=== PATIENT | male | born 1985 | race Caucasian/White ===

== ENCOUNTER 2018-11-29 08:26 | Emergency (ER) | payer OTHER ==
[~2018-11-29] VITALS: Ht 182.9 cm; Wt 122.5 kg
[~2018-11-29 08:26] MED LIST: BACTRIM DS TAB1 EACH PO; FLEXERIL PO; KEFLEX500 MG PO; NAPROSYN500 MG PO; NOHOMEMEDICATIONS; NORCO 5-325 TA1 EACH PO; POLYMYXIN B/TMP10 ML OP; ULTRAM 50MG TAB50 MG PO; ZOFRAN ODT4 MG PO
[2018-11-29 09:20] LABS: ABSOLUTE BASOPHILS 0.1 thou/uL (0.0-0.2); ABSOLUTE EOSINOPHILS 0.4 thou/uL (0.0-0.7); ABSOLUTE LYMPHOCYTES 1.7 thou/uL (0.8-5.3); ABSOLUTE MONOCYTES 0.7 thou/uL (0.0-1.2); ABSOLUTE NEUTROPHILS 4.6 thou/uL (1.6-8.1); BASOPHILS 0.7 %; EOSINOPHILS 5.2 %; HEMATOCRIT 43.6 % (42.0-52.0); HEMOGLOBIN 14.3 gm/dL (14.0-18.0); MCH 28.9 pg (26.0-34.0); MCHC 32.7 g/dL (28.0-37.0); MCV 88.4 fL (80.0-100.0); MONOCYTES 9.4 %; MPV 7.7 fl. (7.2-11.1); NUCLEATED RBCS 0 /100WBC; PLATELET COUNT* 252 thou/uL (150-400); POLYS 61.7 %; RBC 4.94 mil/uL (4.50-6.00); RDW-CV 14.6 % (10.5-14.5); WBC 7.5 thou/uL (4.0-11.0)
[2018-11-29 09:33] LABS: ALBUMIN 3.7 g/dL (3.4-5.0); CALCIUM 8.9 mg/dL (8.5-10.1); POTASSIUM 4.5 mmol/L (3.5-5.1); TOTAL BILIRUBIN 0.2 mg/dL (<0.1-1.0); TOTAL PROTEIN 7.1 g/dL (6.4-8.2)
[2018-11-29] MEDS ORDERED: CEFDINIR300 MG PO (09:45)
[2018-11-29 10:16] VITALS: BP 150/87
== END 2018-11-29 10:16 | disposition home or self-care (01) ==
LOC: M.ERS 08:26
PROVIDERS: Personal Emergency Response Attendant
DX: L03.211 Cellulitis of face (principal); M27.2 Inflammatory conditions of jaws; F17.210 Nicotine dependence, cigarettes, uncomplicated

== ENCOUNTER 2019-06-06 18:56 | Emergency (ER) | payer OTHER ==
[~2019-06-06] VITALS: Ht 180.3 cm; Wt 127.0 kg
[~2019-06-06 18:56] MED LIST changes: +CEFDINIR300 MG PO
[2019-06-06 21:00] LABS: ABSOLUTE BASOPHILS 0.1 thou/uL (0.0-0.2); ABSOLUTE EOSINOPHILS 0.1 thou/uL (0.0-0.7); ABSOLUTE LYMPHOCYTES 0.9 thou/uL (0.8-5.3); ABSOLUTE MONOCYTES 0.8 thou/uL (0.0-1.2); ABSOLUTE NEUTROPHILS 8.1 thou/uL (1.6-8.1); BASOPHILS 0.9 %; HEMATOCRIT 39.6 % (42.0-52.0); HEMOGLOBIN 13.4 gm/dL (14.0-18.0); LYMPHOCYTES 9.2 %; MCH 29.6 pg (26.0-34.0); MCHC 33.7 g/dL (28.0-37.0); MCV 87.7 fL (80.0-100.0); MONOCYTES 7.6 %; MPV 7.6 fl. (7.2-11.1); NUCLEATED RBCS 0 /100WBC; PLATELET COUNT* 223 thou/uL (150-400); POLYS 81.3 %; RBC 4.52 mil/uL (4.50-6.00); RDW-CV 14.4 % (10.5-14.5); WBC 9.9 thou/uL (4.0-11.0)
[2019-06-06 21:09] LABS: CALCIUM 8.9 mg/dL (8.5-10.1); CREATININE 0.9 mg/dL (0.6-1.3); POTASSIUM 4.1 mmol/L (3.5-5.1)
[2019-06-06 21:14] LABS: ALBUMIN 3.8 g/dL (3.4-5.0); TOTAL BILIRUBIN 0.3 mg/dL (<0.1-1.0); TOTAL PROTEIN 7.5 g/dL (6.4-8.2)
[2019-06-06 21:50] LABS: INFLUENZA A ANTIGEN Negative (Negative); INFLUENZA B ANTIGEN Negative (Negative)
[2019-06-06] MEDS ORDERED: PROAIR HFA8.5 GM INH (22:10)
[2019-06-06] MEDS ORDERED: BENZONATATE200 MG PO (22:10)
[2019-06-06] MEDS ORDERED: PREDNISONE50 MG PO (22:10)
[2019-06-06] MEDS ORDERED: ZPAK PO (22:10)
[2019-06-06 22:20] VITALS: BP 164/86
== END 2019-06-06 22:21 | disposition home or self-care (01) ==
LOC: M.ERS 18:56
PROVIDERS: Emergency Medicine; Nurse Practitioner Family
DX: J06.9 Acute upper respiratory infection, unspecified (principal)

== ENCOUNTER → 2019-10-22 | Outpatient (CLI) | payer OTHER ==
[~2019-10-22] MED LIST changes: +BENZONATATE200 MG PO; +PREDNISONE50 MG PO; +PROAIR HFA8.5 GM INH; +ZPAK PO
--- NOTE | 2019-10-27 18:23 | SLEEP ---
[address] [address] SLEEP STUDY REPORT Name: RAMON FLORES Room: [facility]#: [id number] Admission: 10/22/19 Attend Phys: Randal Rojo DO Discharge: Date of : 81 Report #: [id number] THIS REPORT FOR: //name// CC: Randal Rojo DO This study has been reviewed in its entirety by a board certified sleep specialist DATE OF SERVICE: 10/22/2019 SLEEP STUDY REFERRING PHYSICIAN: Randal Rojo DO DESCRIPTION OF STUDY: The patient is 34 years old who weighs 330 pounds with a BMI of 46. The patient's [place] score was 2. The patient underwent home sleep study performed at [facility]. Total recording time was 454 minutes. During the night of the study, the patient had 66 obstructive apneas, no mixed or central apneas, and 8 hypopneas. The patient's AHI was 48 per hour. Nocturnal oximetry study revealed an average oxygen saturation of 93% with the lowest of 79%. 26 minutes were spent in oxygen saturation less than 90%. Mean heart rate was 86 beats per minute. This study had only 1.5 hours of reportable data due to issues with the flow sensor. IMPRESSION: 1. Severe sleep apnea-hypopnea syndrome at an AHI of 48 per hour. 2. Nocturnal hypoxia secondary to obstructive sleep apnea. RECOMMENDATIONS: 1. The patient would benefit from in-lab CPAP titration study. 2. Once the patient is optimally treated, then follow up in 4-6 weeks to assess compliance with treatment and to document clinical improvement. 3. Weight loss is strongly advised. 4. Avoid EARLY INTERVENTIONIST depressants. 5. Cautioned regarding driving until symptoms of sleep apnea resolve with the use of CPAP. <ELECTRONICALLY SIGNED> By: Favian Molina MD 10/27/19 1823 [id number] Molina MD /nt
== END ==
LOC: M.SLEEPLAB 10-15 13:30
DX: G47.34 Idiopathic sleep related nonobstructive alveolar hypoventilation (principal); G47.33 Obstructive sleep apnea (adult) (pediatric)

== ENCOUNTER 2019-10-31 11:00 | Emergency (ER) | payer OTHER ==
[~2019-10-31] VITALS: Ht 182.9 cm; Wt 149.7 kg
[2019-10-31 12:22] VITALS: BP 140/74
== END 2019-10-31 12:23 | disposition home or self-care (01) ==
LOC: M.ERS 11:00
DX: R51 Headache (principal); F17.210 Nicotine dependence, cigarettes, uncomplicated

== ENCOUNTER 2021-02-01 14:03 | Emergency (ER) | payer OTHER ==
[~2021-02-01] VITALS: Ht 182.9 cm; Wt 136.1 kg
[2021-02-01 14:58] VITALS: BP 164/67
== END 2021-02-01 14:59 | disposition home or self-care (01) ==
LOC: M.ERS 14:03
DX: L25.9 Unspecified contact dermatitis, unspecified cause (principal); D17.0 Benign lipomatous neoplasm of skin and subcutaneous tissue of head, face and neck